=== PATIENT | male | born 1975 | race Caucasian/White ===

== ENCOUNTER 2019-09-24 11:26 | Emergency (ER) | payer OTHER ==
[2019-09-24] MEDS ORDERED: ALBUTEROL SO4 2.5/IPRATROPIUM 0.5 INH SOL 3 ML VIAL.NEB. NEB ONE ×2 (11:48→11:49)
[2019-09-24 11:50] VITALS: BP 136/95; PULSE 95; TEMP 98.1; BMI 26.4
--- NOTE | 2019-09-24 11:59 | PDOC ---
History of Present Illness - General Chief Complaint: Shortness of Breath Stated Complaint: SOB, COUGH Time Seen by Provider: 09/24/19 11:28 History Source: Patient Exam Limitations: No Limitations - History of Present Illness Initial Comments: 09/24/19 11:51 43 yo male pmh of asthma, a ressected astrocytoma from [facility] and 2 hemorrhagic strokes presents to the ED after SOB during sleep. Pt states he woke up last night SOB with a cough and wheezing, used symbacort (not on a rescue inhaler) with only brief resolution of symptoms and admits to persistent mild SOB. Denies recent travel, calf tenderness, pt is ambulatory, denies fevers , cough, congestion, sinus or ear pain, CP, abdominal pain, N/V. Pt had similar exacerbation 1 month ago, treated in the ED and symptoms resolved , has not followed up with Pulmonogy in many years Pt PCP is Dr. Quigley, awaiting appointment Past History - Past Medical History Allergies/Adverse Reactions: Allergies Allergy/AdvReac Type Severity Reaction Status Date / Time Iodinated Contrast Media Allergy Verified 09/24/19 11:27 iodine Allergy Verified 09/24/19 11:27 shellfish derived Allergy Verified 09/24/19 11:27 CT scan Dye Allergy Severe Anaphylaxis Uncoded 09/24/19 11:27 Home Medications: Ambulatory Orders Diphenhydramine HCl [Benadryl -] 25 mg PO ASDIR 08/16/16 Albuterol Sulfate Inhaler - [Ventolin HFA Inhaler -] 1 - 2 inh PO Q4H #1 inhaler 09/24/19 Prednisone [Prednisone 50 MG TABLETS] 50 mg PO BID #6 tablet 09/24/19 Asthma: Yes Cancer: Yes (BRAIN CA REMOVED) CVA: Yes (RT SIDED WEAKNESS, APHASIA) COPD: No - Surgical History Neurologic Surgery: Yes (BRAIN CANCER) - Psycho Social/Smoking Cessation Hx Smoking History: Never smoked Hx Alcohol Use: No Drug/Substance Use Hx: No Review of Systems - Review of Systems Constitutional: No: Chills, Fever Respiratory: Yes: Wheezing (mild). No: Cough, Shortness of Breath Cardiac (ROS): No: Chest Pain, Edema ABD/GI: No: Constipated, Nausea, Vomiting, Abdominal cramping : No: Burning, Dysuria, Frequency, Flank Pain Musculoskeletal: No: Back Pain Neurological: No: Headache, Numbness, Paresthesia, Weakness *Physical Exam - Vital Signs Last Vital Signs Temp Pulse Resp BP Pulse Ox 98.1 F 95 H 18 136/95 97 09/24/19 11:27 09/24/19 11:27 09/24/19 11:27 09/24/19 11:27 09/24/19 11:27 - Physical Exam General Appearance: Yes: Nourished, Appropriately Dressed. No: Apparent Distress HEENT: positive: EOMI Neck: positive: Supple. negative: Carotid bruit Respiratory/Chest: positive: Wheezing, Other (mild bilateral lower lobe wheezing ). negative: Lungs Clear, Accessory Muscle Use, Crackles, Rales, Rhonchi, Stridor Cardiovascular: positive: Regular Rhythm, Regular Rate, S1, S2. negative: Edema , JVD, Murmur Vascular Pulses: Dorsalis-Pedis (R): 4+, Doralis-Pedis (L): 4+ Gastrointestinal/Abdominal: positive: Flat, Soft. negative: Pulsatile Mass, Distended, Guarding, Rebound, Tenderness Musculoskeletal: negative: CVA Tenderness Medical Decision Making - Medical Decision Making 09/24/19 12:43 43 yo male pmh of asthma, a ressected astrocytoma from [employer] and 2 hemorrhagic strokes presents to the ED after SOB during sleep. Pt states he woke up last night SOB with a cough and wheezing, used symbacort (not on a rescue inhaler) with only brief resolution of symptoms and admits to persistent mild SOB. Denies recent travel, calf tenderness, pt is ambulatory, denies fevers , cough, congestion, sinus or ear pain, CP, abdominal pain, N/V. Pt had similar exacerbation 1 month ago, treated in the ED and symptoms resolved , has not followed up with Pulmonogy in many years Pt PCP is Dr. Quigley, awaiting appointment Vitals WNL Pt suffering from a resolving asthma exacerbation. Given 2 duonebs and oral prednisone with resolution of symptoms Pt will follow up with PCP and Pulm (Dr. Blas) and given a rescue inhaler along with po steroids understands DC plans Discharge - Discharge Information Problems reviewed: Yes Clinical Impression/Diagnosis: Asthma Condition: Improved Disposition: HOME - Admission No - Additional Discharge Information Prescriptions: Albuterol Sulfate Inhaler - [Ventolin HFA Inhaler -] 1 - 2 inh PO Q4H #1 inhaler Prednisone [Prednisone 50 MG TABLETS] 50 mg PO BID #6 tablet - Follow up/Referral Referrals: Vinny Quigley MD [Primary Care Provider] - - Patient Discharge Instructions Patient Printed Discharge Instructions: DI for Asthma -- Adult Additional Instructions: Please see your Primary Doctor within the next 48 hours. See your Head Char Filter Tank Tender as soon as possible. Take your home dosed medications as prescribed. Used the albuterol rescue inhaler every 4 hours and discuss being put on a rescue inhaler with your Primary Doctor as soon as possible. Take the steroid 2 times a day for the next 3 days. Return to the ER for new or concerning findings including but not limited to: difficulty breathing, fevers, inability to eat or drink. Thank you - Post Discharge Activity
--- NOTE | 2019-09-24 12:13 | PDOC ---
Attending Attestation - Resident Resident Name: Garett Dennis - ED Attending Attestation I have performed the following: I have examined & evaluated the patient, The case was reviewed & discussed with the resident, I agree w/resident's findings & plan - HPI HPI: 09/24/19 12:11 43 yo male pmh of asthma, a ressected astrocytoma from [place] and 2 hemorrhagic strokes presents to the ED after SOB - waking up today with cough and wheeze. usually uses symbacort with some relief. Denies recent travel, calf tenderness, pt is ambulatory, denies fevers, cough, congestion, sinus or ear pain, CP, abdominal pain, N/V. PCP: Dr. Mas - Physicial Exam PE: 09/24/19 12:13 Agree with the resident's HPI and PE as documented in the electronic medical record. NAD, well appearing, EOMI, PERRL, nl conjunctiva, anicteric; neck supple. lungs clear, no respiratory distress, speaking full sentences. RRR, no murmur, abdomen soft nontender. no rebound, guarding. Back nontender. LEWIS x4, +baseline aphasia, +RUE and RLE 4/5, chronic right foot drop in brace. No peripheral edema. normal color for ethnicity, WWP. 09/24/19 12:35 - Medical Decision Making 09/24/19 12:13 Vital Signs Temp Pulse Resp BP Pulse Ox 98.1 F 95 H 18 136/95 97 09/24/19 11:27 09/24/19 11:27 09/24/19 11:27 09/24/19 11:27 09/24/19 11:27 vs reviewed, wnl. no fever, nontoxic appearing, breathing comfortably, spo2 >97 % on ra ddx sob: asthma, pneumonia, bronchitis, viral syndrome given duonebs x 3 cxr clear, no pna, normal cardiac silhouette, no effusion or edema feels much improved,. initial wheezing gone by time of my exam full sentences, airway intact. rx prednisone x 3 days, albuterol rescue inhaler q4-6 hr as needed minimize triggers/precipitants Pt to be discharged in stable condition. Patient and family made aware of clinical impression, treatment recommendations and disposition plan, return precautions discussed (including but not limited to new or persistent/worsening symptoms, pain, fevers, or signs of infection, chest pain, respiratory distress , inability to tolerate oral intake, dehydration, syncope, or neurologic changes ). Follow up with PMD Dr Mas and/or specialist as recommended, follow up information provided, take medications as instructed for duration of time. continue with supportive care, avoid triggers and precipitants. All questions answered to patient's satisfaction and expressed understanding and comfort with this. At the time of discharge, the patient is alert, clinically improved, tolerating po and verbalizes understanding of instructions, satisfied with the care received and felt comfortable with the plan. Patient does not suffer from an acute life-threatening medical condition at this time and is safe for outpatient follow-up. 09/24/19 12:36 09/24/19 12:37
[2019-09-24] MEDS ORDERED: predniSONE 20 MG TABLET (UD) PO ONE (12:22)
[2019-09-24] MEDS ORDERED: predniSONE 20 MG TABLET (UD) ONE (12:44)
== END 2019-09-24 12:58 | disposition home or self-care (01) ==
LOC: FER 11:26
PROC: 3E0F7GC Introduction of Other Therapeutic Substance into Respiratory Tract, Via Natural or Artificial Opening (ICD-10-PCS; principal; 2019-09-24)
DX: J45.901 Unspecified asthma with (acute) exacerbation (principal); I69.351 Hemiplegia and hemiparesis following cerebral infarction affecting right dominant side; I69.320 Aphasia following cerebral infarction; Z91.013 Allergy to seafood; Z91.041 Radiographic dye allergy status; Z85.841 Personal history of malignant neoplasm of brain
CPT/HCPCS: 71046-TC-FY; 99282-25

== ENCOUNTER 2019-10-13 21:59 | Emergency (ER) | payer OTHER ==
[2019-10-13] MEDS ORDERED: ALBUTEROL SO4 2.5/IPRATROPIUM 0.5 INH SOL 3 ML VIAL.NEB. NEB ONE ×4 (22:05→22:26)
[2019-10-13] MEDS ORDERED: predniSONE 20 MG TABLET (UD) PO ONE (22:05)
[2019-10-13 22:12] VITALS: BP 149/92; PULSE 113; TEMP 97.4; BMI 25.7
[2019-10-13] MEDS ORDERED: predniSONE 20 MG TABLET (UD) ONE (22:26)
--- NOTE | 2019-10-13 22:29 | PDOC ---
Documentation entered by Radha Dubon SCRIBE, acting as scribe for Jermain Mahmood MD. Jermain Mahmood MD: This documentation has been prepared by the daisyibe, Radha Dubon SCRIBE, under my direction and personally reviewed by me in its entirety. I confirm that the documentation accurately reflects all work , treatment, procedures, and medical decision making performed by me. History of Present Illness - General Chief Complaint: Asthma Stated Complaint: ASTHMA History Source: Patient Exam Limitations: No Limitations - History of Present Illness Initial Comments: 10/13/19 22:26 The patient is a 43-year-old male who presents to the emergency department with shortness of breath. The patient reports hes on Symbicort and albuterol for his asthma. The patients recent prednisone use was about a month ago. Denies fever, chills, or productive cough. PAST MEDICAL HISTORY: Hx of asthma (no prior hospitalization), childhood brain tumor, x2 hemorrhagic stroke. PAST SURGICAL HISTORY: resected astrocytoma FAMILY HISTORY: no pertinent history SOCIAL HISTORY: Pt lives with family. MEDICATIONS: reviewed ALLERGIES: As per nursing notes Review of system: General: No fevers or chills, no weakness, no weight loss HEENT: No change in vision. No sore throat,. No ear pain CardioVascular: No chest pain or shortness of breath Respiratory: +shortness of breath. No cough. Gastrointestinal: no nausea, vomiting, diarrhea or constipation. Genitourinary: No dysuria, hematuria, or frequency Musculoskeletal: No joint or muscle pain or swelling Neurologic: No headache, vertigo, dizziness or loss of consciousness Psychiatric: nor depression Skin: No rashes or easy bruising Endocrine: no increased thirst or abnormal weight change Allergic: no skin or latex allergy All other systems reviewed and normal Physical exam: General: Well-nourished well-developed individual, no acute distress HEENT: Throat: Normal, tonsils normal, no erythema or exudate Neck: Supple, no meningeal signs, no lymphadenopathy Eyes: Pupils equal reactive and round, extraocular motion intact Chest: Nontender to palpation Cardiac: S1-S2 normal, regular rate and rhythm, no murmurs rubs or gallops Respiratory: +mild expiratory wheezing in all colón. Extremities: Warm, dry, no cyanosis, clubbing, or edema Skin: No rashes Neuro: Alert and oriented x3, nonfocal exam, grossly intact, ambulatory with a cane. Psych: Normal mood and affect Assessment and plan: This is a 43-year-old male who comes in with his dad for evaluation of difficulty breathing. Patient has an extensive history of brain cancer with strokes x2 and some permanent neurological disabilities. Patient has also a history of asthma for which he takes Symbicort and albuterol. Patient has had prednisone in the past. Patient is never been admitted for his asthma. Patient does have some mild expiratory wheezing for which she was given DuoNeb' s x2 and prednisone Parent prescription for the prednisone was sent to patient's pharmacy and he was discharged home with his father. 10/13/19 22:30 Past History - Past Medical History Allergies/Adverse Reactions: Allergies Allergy/AdvReac Type Severity Reaction Status Date / Time Iodinated Contrast Media Allergy Verified 10/13/19 22:03 iodine Allergy Verified 10/13/19 22:03 shellfish derived Allergy Verified 10/13/19 22:03 CT scan Dye Allergy Severe Anaphylaxis Uncoded 09/24/19 11:27 Home Medications: Ambulatory Orders Diphenhydramine HCl [Benadryl -] 25 mg PO ASDIR 08/16/16 Albuterol Sulfate Inhaler - [Ventolin HFA Inhaler -] 1 - 2 inh PO Q4H #1 inhaler 09/24/19 Albuterol Sulfate Inhaler - [Ventolin HFA Inhaler -] 2 inh PO Q4H PRN #1 inh predniSONE [Deltasone -] 40 mg PO DAILY #8 tablet 10/13/19 Asthma: Yes Cancer: Yes (H/O BRAIN CA) CVA: Yes (RT SIDED WEAKNESS, APHASIA) COPD: No - Surgical History Neurologic Surgery: Yes (BRAIN CANCER) - Psycho Social/Smoking Cessation Hx Smoking History: Never smoked Hx Alcohol Use: No Drug/Substance Use Hx: No *Physical Exam - Vital Signs Last Vital Signs Temp Pulse Resp BP Pulse Ox 97.4 F L 113 H 20 149/92 97 10/13/19 22:09 10/13/19 22:09 10/13/19 22:09 10/13/19 22:09 10/13/19 22:09 ED Treatment Course - Medications Given in the ED: ED Medications Discontinued Medications Generic Name Dose Route Start Last Admin Trade Name Freq PRN Reason Stop Dose Admin Albuterol/Ipratropium 1 amp 10/13/19 22:05 10/13/19 22:11 Duoneb - NEB 10/13/19 22:06 1 amp ONCE ONE Administration Discharge - Discharge Information Problems reviewed: Yes Clinical Impression/Diagnosis: Acute exacerbation of extrinsic asthma Condition: Stable - Admission No - Additional Discharge Information Prescriptions: predniSONE [Deltasone -] 40 mg PO DAILY #8 tablet - Follow up/Referral Referrals: Vinny Quigley MD [Primary Care Provider] - - Patient Discharge Instructions Patient Printed Discharge Instructions: Asthma -- Adult Additional Instructions: Continue to use your inhalers as prescribed Get the prescription filled for prednisone and take 40 mg a day for 4 days Return to the emergency department immediately with ANY new, persistent or worsening symptoms. Continue any medications as previously prescribed by your physician. You should follow up with your primary doctor as soon as possible regarding today's emergency department visit. . Please make sure your doctor reviews the results of your emergency evaluation. Thank you for coming to the Emergency Department today for your care. It was a pleasure to see you today. Please note that your evaluation is INCOMPLETE until you follow-up with your doctor. - Post Discharge Activity
== END 2019-10-13 22:53 | disposition home or self-care (01) ==
LOC: FER 21:59
PROC: 3E0F7GC Introduction of Other Therapeutic Substance into Respiratory Tract, Via Natural or Artificial Opening (ICD-10-PCS; principal; 2019-10-13)
DX: J45.901 Unspecified asthma with (acute) exacerbation (principal); Z91.041 Radiographic dye allergy status; Z91.013 Allergy to seafood; Z88.8 Allergy status to other drugs, medicaments and biological substances; Z85.841 Personal history of malignant neoplasm of brain; Z86.73 Personal history of transient ischemic attack (TIA), and cerebral infarction without residual deficits
CPT/HCPCS: 99281-25

== ENCOUNTER 2019-10-30 19:40 | Emergency (ER) | payer OTHER ==
[2019-10-30 19:55] VITALS: BP 122/84; PULSE 108; TEMP 98.3; BMI 25.7
[2019-10-30] MEDS ORDERED: ALBUTEROL SO4 2.5/IPRATROPIUM 0.5 INH SOL 3 ML VIAL.NEB. NEB ONE ×2 (21:46→21:47)
[2019-10-30] MEDS ORDERED: predniSONE 20 MG TABLET (UD) PO ONE (21:57)
[2019-10-30] MEDS ORDERED: predniSONE 20 MG TABLET (UD) ONE (21:59)
--- NOTE | 2019-10-30 23:18 | PDOC ---
Documentation entered by Ana Rojas SCRIBE, acting as scribe for Sharlene Maya MD. Sharlene Maya MD: This documentation has been prepared by the Crystal wu Nirvannie, SCRIBE, under my direction and personally reviewed by me in its entirety. I confirm that the documentation accurately reflects all work, treatment, procedures, and medical decision making performed by me. History of Present Illness - General Chief Complaint: Asthma Stated Complaint: ASTHMA Time Seen by Provider: 10/30/19 19:45 History Source: Patient, Parent(s) Exam Limitations: Clinical Condition (Aphasia.) - History of Present Illness Initial Comments: 10/30/19 21:57 The patient is a 44 year old male, with a significant past medical history of asthma and CVA (x2 with residual aphasia), who presents to the emergency department with 2 days of cough with productive clear sputum and shortness of breath. As per patient, he experienced similar symptoms 17 days ago and evaluated in the ED then discharged after a nebulizer treatment on Prednisone. Patient notes his symptoms returned after the completion of his Prednisone course. He notes using him rescue inhaler, without improvement prompting his arrival to the ED. History is limited secondary to patients aphasia. Father notes they will attempt to push up his upcoming appointment with Dr. Quigley to this week. He denies any recent chest pain. He denies any recent fevers, chills, headache or dizziness. He denies any recent nausea, vomiting, diarrhea or constipation. He denies any recent dysuria, frequency, urgency or hematuria. Allergies: Contrast, Shellfish, Iodine. Past surgical history: Resected astrocytoma. Social History: Nonsmoker. Denies EtOH use and recreational drug use. Primary Care Physician: Dr. Quigley Past History - Past Medical History Allergies/Adverse Reactions: Allergies Allergy/AdvReac Type Severity Reaction Status Date / Time Iodinated Contrast Media Allergy Verified 10/13/19 22:03 iodine Allergy Verified 10/13/19 22:03 shellfish derived Allergy Verified 10/13/19 22:03 CT scan Dye Allergy Severe Anaphylaxis Uncoded 09/24/19 11:27 Home Medications: Ambulatory Orders Diphenhydramine HCl [Benadryl -] 25 mg PO ASDIR 08/16/16 Albuterol Sulfate Inhaler - [Ventolin HFA Inhaler -] 1 - 2 inh PO Q4H #1 inhaler 09/24/19 Albuterol Sulfate Inhaler - [Ventolin HFA Inhaler -] 2 inh PO Q4H PRN #1 inh predniSONE [Deltasone -] 40 mg PO DAILY #8 tablet 10/30/19 Asthma: Yes Cancer: Yes (H/O BRAIN CA) CVA: Yes (RT SIDED WEAKNESS, APHASIA) COPD: No Hypercholesterolemia: Yes Seizures: Yes - Surgical History Neurologic Surgery: Yes (BRAIN CANCER) - Psycho Social/Smoking Cessation Hx Smoking History: Never smoked Have you smoked in the past 12 months: No Hx Alcohol Use: No Drug/Substance Use Hx: No Review of Systems - Review of Systems Able to Perform ROS?: Yes Comments:: 10/30/19 21:58 CONSTITUTIONAL: Absent: fever, chills, diaphoresis, generalized weakness, malaise, loss of appetite HEENT: Absent: rhinorrhea, nasal congestion, throat pain, throat swelling, difficulty swallowing, mouth swelling, ear pain, eye pain, visual Changes CARDIOVASCULAR: Absent: chest pain, syncope, palpitations, irregular heart rate, lightheadedness , peripheral edema RESPIRATORY: Present: Cough and shortness of breath. Absent: dyspnea with exertion, orthopnea, stridor, hemoptysis GASTROINTESTINAL: Absent: abdominal pain, abdominal distension, nausea, vomiting, diarrhea, constipation, melena, hematochezia GENITOURINARY: Absent: dysuria, frequency, urgency, hesitancy, hematuria, flank pain, genital pain MUSCULOSKELETAL: Absent: myalgia, arthralgia, joint swelling SKIN: Absent: rash, itching, pallor HEMATOLOGIC/IMMUNOLOGIC: Absent: easy bleeding, easy bruising, lymphadenopathy, frequent infections ENDOCRINE: Absent: unexplained weight gain, unexplained weight loss, heat intolerance, cold intolerance NEUROLOGIC: Absent: headache, focal weakness or paresthesias, dizziness, unsteady gait, seizure, mental status changes, bladder or bowel incontinence PSYCHIATRIC: Absent: anxiety, depression, suicidal or homicidal ideation, hallucinations. All Other Systems: Reviewed and Negative *Physical Exam - Vital Signs Last Vital Signs Temp Pulse Resp BP Pulse Ox 98.3 F 108 H 22 H 122/84 96 10/30/19 19:41 10/30/19 19:41 10/30/19 19:41 10/30/19 19:41 10/30/19 19:41 ED Treatment Course - Medications Given in the ED: ED Medications Discontinued Medications Generic Name Dose Route Start Last Admin Trade Name Kaushik PRMarty Reason Stop Dose Admin Albuterol/Ipratropium 1 amp 10/30/19 21:46 10/30/19 21:49 Duoneb - NEB 10/30/19 21:47 1 amp ONCE ONE Administration ED Progress Note - Progress Note Progress Note: As noted above, this 44-year-old man with a history of asthma presents with few day history of cough productive of clear sputum and chest congestion/difficulty breathing. Patient apparently has had 2 previous episodes of similar exacerbation of asthma in the last 6 weeks, the last one occurring approximately 3 weeks ago. He denies purulent sputum or fever. He has been taking his medications as previously prescribed. Exam as noted. Because patient has ongoing symptoms of shortness of breath and chest congestion , DuoNeb nebulizer treatment given. During his previous episodes of productive cough and subjective shortness of breath, he had been treated with short courses of prednisone with good relief. According to the patient and his father, he has been unable to follow-up with his PMD, Dr. Quigley during the last several weeks. He plans on following up with him this coming week. Patient will be started on a brief (5-day) course of prednisone, 40 mg daily with first dose being given here in the emergency room. Patient should return to the ER if he has persistent shortness of breath/ wheezing or persistent high fever. Otherwise, he should plan on following up with Dr. Jimenez within the next 2 to 3 days Discharge - Discharge Information Problems reviewed: Yes Clinical Impression/Diagnosis: Acute exacerbation of extrinsic asthma Condition: Stable Disposition: HOME - Additional Discharge Information Prescriptions: predniSONE [Deltasone -] 40 mg PO DAILY #8 tablet - Follow up/Referral Referrals: Vinny Quigley MD [Primary Care Provider] - - Patient Discharge Instructions Patient Printed Discharge Instructions: Asthma -- Adult Additional Instructions: continue medications as prescribed Prednisone 40 mg daily for 4 days starting tomorrow; take with food followup with Dr Quigley within the next 5-7 days return to the ER if shortness of breath/ wheezing persists or fever develops - Post Discharge Activity
== END 2019-10-30 22:13 | disposition home or self-care (01) ==
LOC: FER 19:40
PROC: 3E0F7GC Introduction of Other Therapeutic Substance into Respiratory Tract, Via Natural or Artificial Opening (ICD-10-PCS; principal; 2019-10-30)
DX: J45.901 Unspecified asthma with (acute) exacerbation (principal); I69.320 Aphasia following cerebral infarction; I69.351 Hemiplegia and hemiparesis following cerebral infarction affecting right dominant side; E78.00 Pure hypercholesterolemia, unspecified; Z91.041 Radiographic dye allergy status; Z91.048 Other nonmedicinal substance allergy status; Z85.841 Personal history of malignant neoplasm of brain
CPT/HCPCS: 94640; 99282-25

== ENCOUNTER 2020-08-17 17:35 | Emergency (ER) | payer OTHER ==
--- NOTE | 2020-08-17 17:43 | PDOC ---
History of Present Illness - General Chief Complaint: Asthma Stated Complaint: asthma attack History Source: Patient Exam Limitations: No Limitations - History of Present Illness Initial Comments: 44 yo male pmhx of asthma, an astrocytoma from childhood s/p resection and 2x hemorrhagic strokes presents to the ED with shortness of breath. Per the patient, he currently takes symbicort and montelukast, but does not take albuterol (states he has no cartridges for his nebulizer). Per the patient, he states he gets asthma flare ups in the fall/winter time due to seasonal changes. Denies chest pain. ENdorses having rhinorrhea. Past History - Medical History Allergies/Adverse Reactions: Allergies Allergy/AdvReac Type Severity Reaction Status Date / Time Iodinated Contrast Media Allergy Verified 08/17/20 18:19 iodine Allergy Verified 08/17/20 18:19 shellfish derived Allergy Verified 08/17/20 18:19 CT scan Dye Allergy Severe Anaphylaxis Uncoded 08/17/20 18:19 Home Medications: Ambulatory Orders Montelukast Sodium 10 mg PO DAILY 08/17/20 Asthma: Yes Cancer: Yes (H/O BRAIN CA) CVA: Yes (RT SIDED WEAKNESS, APHASIA) COPD: No Hypercholesterolemia: Yes Seizures: Yes - Surgical History Neurologic Surgery: Yes (BRAIN CANCER) - Psycho-Social/Smoking History Smoking History: Never smoked Have you smoked in the past 12 months: No Medical Decision Making - Medical Decision Making 08/17/20 19:32 patient was re-assessed after 2x albuterol and 1x steroid treatment. continues to have wheezing and saturating at 93% on RA. Will provide another 2 pumps of albuterol and re-assess. patient was signed out to night team. Discharge - Discharge Information Condition: Stable - Follow up/Referral Referrals: Vinny Quigley MD [Primary Care Provider] - - Patient Discharge Instructions - Post Discharge Activity
[2020-08-17] MEDS ORDERED: predniSONE 5 MG/5 ML ORAL SOLN- UNIT-DOSE CUP PO ONE (17:44)
[2020-08-17] MEDS ORDERED: ALBUTEROL SO4 HFA INHALER IH ONE ×3 (17:44→19:19)
--- OUTSIDE RECORDS SUMMARY | 2020-08-17 17:51 | XMS ---
:1975 Author Organization [facility] Care Team Providers Name Role Phone [id number] Unavailable Unavailable Re-disclosure Warning The records that you are about to access may contain information from federally- assisted alcohol or drug abuse programs. If such information is present, then the following federally mandated warning applies: This information has been disclosed to you from records protected by federal confidentiality rules (42 CFR part 2). The federal rules prohibit you from making any further disclosure of this information unless further disclosure is expressly permitted by the written consent of the person to whom it pertains or as otherwise permitted by 42 CFR part 2. A general authorization for the release of medical or other information is NOT sufficient for this purpose. The Federal rules restrict any use of the information to criminally investigate or prosecute any alcohol or drug abuse patient.The records that you are about to access may contain highly sensitive health information, the redisclosure of which is protected by Article 27-F of the [facility] Public Health law. If you continue you may haveaccess to information: Regarding HIV / AIDS; Provided by facilities licensed or operated by the [facility] Office of Mental Health; or Provided by the [facility] Office for People With Developmental Disabilities. If such information is present, then the following [facility] mandated warning applies: This information has been disclosed to you from confidential records which are protected by state law. State law prohibits you from making any further disclosure of this information without the specific written consent of the person to whom it pertains, or as otherwise permitted by law. Any unauthorized further disclosure in violation of state law may result in a fine or residential sentence or both. A general authorization for the release of medical or other information is NOT sufficient authorization for further disclosure. Encounters Encounter Providers Location Date Indications Data Source(s ) Outpatient Attender: [id number] 12/22/2019 [facility] [address] [facility] 01:07:06 PM Care Ana pham) EST Patient admitted. Insurance Providers Payer name Policy type Policy ID Covered Covered democrat's Policy P hiren / Coverage democrat ID relationship to [employer] ormation type [employer] MEDICARE [id number] 1 MEDICAID OF [id number] [place] [id number] PART B [place] [id number] PART B [id number] [facility]
--- NOTE | 2020-08-17 18:06 | PDOC ---
Attending Attestation - Resident Resident Name: Dave Feliciano - ED Attending Attestation I have performed the following: I have examined & evaluated the patient, The case was reviewed & discussed with the resident, I agree w/resident's findings & plan, Exceptions are as noted - HPI HPI: 08/17/20 18:46 Developmentally disabled. Mild exacerbation of asthma symptoms. Nebulizer at home. No recent steroids. No fever, cough - Physicial Exam PE: 08/17/20 18:46 Afebrile, vital signs normal Physical normal except for mild end expiratory wheezing at both bases and mildly decreased breath sounds bilaterally. - Medical Decision Making 08/17/20 18:47 Assessment: Mild asthma exacerbation. No sign of infection Plan: Albuterol rescue inhaler and short course of steroids. Return to ER if breathing worse. Otherwise follow-up with his doctor Dr. Jimenez. Fully ambulatory and discharged in no distress respiratory or otherwise with his father to follow-up as directed Discharge - Discharge Information Problems reviewed: Yes Clinical Impression/Diagnosis: Asthma attack Qualifiers: Asthma severity: mild Asthma persistence: unspecified Qualified Code(s): J45.901 - Unspecified asthma with (acute) exacerbation Condition: Stable Disposition: HOME - Admission No - Additional Discharge Information Prescriptions: Prednisone [Prednisone 50 MG TABLETS] 50 mg PO DAILY #4 tablet Albuterol Sulfate Inhaler - [Ventolin HFA Inhaler -] 1 - 2 inh PO Q4H #1 inhaler - Follow up/Referral Referrals: Vinny Quigley MD [Primary Care Provider] - - Patient Discharge Instructions Additional Instructions: Use your inhaler 2 puffs as often as every 4 hours as needed for wheezing and shortness of breath. Take prednisone 1 tablet a day for 4 days Return to the emergency department immediately with ANY new, persistent or worsening symptoms. Continue any medications as previously prescribed by your physician. You should follow up with your primary doctor as soon as possible regarding today's emergency department visit. . Please make sure your doctor reviews the results of your emergency evaluation. Thank you for coming to the Emergency Department today for your care. It was a pleasure to see you today. Please note that your evaluation is INCOMPLETE until you follow-up with your doctor. - Post Discharge Activity
[2020-08-17 18:09] VITALS: BP 141/98; PULSE 103; TEMP 97.8; BMI 25.0
[2020-08-17] MEDS ORDERED: predniSONE 20 MG TABLET (UD) ONE (18:12)
--- NOTE | 2020-08-17 19:23 | PDOC ---
*Physical Exam - Vital Signs Last Vital Signs Temp Pulse Resp BP Pulse Ox 97.8 F 103 H 19 141/98 96 08/17/20 17:36 08/17/20 17:36 08/17/20 17:36 08/17/20 17:36 08/17/20 17:36 ED Treatment Course - Medications Given in the ED: ED Medications Discontinued Medications Generic Name Dose Route Start Last Admin Trade Name Kaushik PRN Reason Stop Dose Admin Albuterol Sulfate 2 puff 08/17/20 17:44 08/17/20 18:16 Ventolin Hfa Inhaler - IH 08/17/20 17:45 2 puff ONCE ONE Administration Prednisone 60 mg 08/17/20 17:44 08/17/20 18:16 Deltasone - PO 08/17/20 17:45 60 mg ONCE ONE Administration ED Progress Note - Progress Note Progress Note: 08/17/20 19:21 Care this patient was transferred to [facility] at [address] Dr. Diamond garcia. Patient is a 44-year-old male who has acute exacerbation of asthma. Patient is feeling better however he still has some wheezing so we will continue to give him some albuterol treatments and once his wheezing is improved and air entry is better O2 sats are better patient will be discharged. 08/17/20 20:10 Reevaluation patient's wheezing is now resolved patient feels much better prescription sent to his pharmacy for prednisone and another inhaler patient discharged we will follow-up with his primary care doctor. Discharge - Discharge Information Problems reviewed: Yes Clinical Impression/Diagnosis: Asthma attack Qualifiers: Asthma severity: mild Asthma persistence: unspecified Qualified Code(s): J45.901 - Unspecified asthma with (acute) exacerbation Condition: Stable Disposition: HOME - Admission No - Additional Discharge Information Prescriptions: Prednisone [Prednisone 50 MG TABLETS] 50 mg PO DAILY #4 tablet - Follow up/Referral Referrals: Vinny Quigley MD [Primary Care Provider] - - Patient Discharge Instructions Additional Instructions: Use your inhaler 2 puffs as often as every 4 hours as needed for wheezing and shortness of breath. Take prednisone 1 tablet a day for 4 days Return to the emergency department immediately with ANY new, persistent or worsening symptoms. Continue any medications as previously prescribed by your physician. You should follow up with your primary doctor as soon as possible regarding today's emergency department visit. . Please make sure your doctor reviews the results of your emergency evaluation. Thank you for coming to the Emergency Department today for your care. It was a pleasure to see you today. Please note that your evaluation is INCOMPLETE until you follow-up with your doctor. - Post Discharge Activity
== END 2020-08-17 20:14 | disposition home or self-care (01) ==
LOC: FER 17:35
PROC: 3E0F7GC Introduction of Other Therapeutic Substance into Respiratory Tract, Via Natural or Artificial Opening (ICD-10-PCS; principal; 2020-08-17)
DX: J45.901 Unspecified asthma with (acute) exacerbation (principal)
CPT/HCPCS: 99285-25